=== PATIENT | male | born 1960 | race Caucasian/White ===

== ENCOUNTER 2019-04-28 06:12 | Observation (INO) ==
--- NOTE | 2019-04-12 12:10 | PAT Medication Instructions ---
Medication Instructions Date of Service April 12, 2019 Home Medications gabapentin 200 mg PO TID lisinopril 5 mg PO QAM DO NOT take the morning of surgery lisinopril 5 mg PO QAM Take morning of surgery With a small sip of water, OTHERWISE NOTHING TO EAT OR DRINK AFTER MIDNIGHT: gabapentin 200 mg PO TID Take evening before surgery gabapentin 200 mg PO TID Other Notes If you have any questions please call us at [phone] or [phone] or [phone] or [phone]
--- NOTE | 2019-04-13 10:49 | Anesthesiology Consultation ---
Date of Service April 13, 2019 Assessment & Plan (1) Encounter for pre-operative examination: Awaiting review preop testing (labs, EKG, CXR). Chart Review Chart Review: Patient seen in Pre Admission Testing Teaching & Discussion Pre-Anesthesia Teaching/Discussion Notes: Instructed NPO after midnight before surgery,except medications with 15 cc of water. Medication instructions provided according to the PAT guidelines. History Surgery Operation Date: 04/28/19 11:25 Proposed Procedures p C4-C6 Anterior Cervical Discectomy Fusion with Spinal Cord Monitoring - Jeremy Jules DO Height/Weight Height: 5 ft 8 in Weight: 92.8 kg Allergies Allergy/AdvReac Type Severity Reaction Status Date / Time No Known Allergies Allergy Verified 04/04/19 11:20 Medications Home Medications Medication Instructions Recorded Confirmed Last Taken gabapentin 200 mg PO TID 04/04/19 04/04/19 Unknown lisinopril 5 mg PO QAM 04/04/19 04/04/19 Unknown Past Medical History Medical History Bulging of cervical intervertebral disc Chronic neck pain Hypertension Obesity Exercise / Class Metabolic Activity II 4-5 Yardwork/Stairs/Walk up hill Past Family History Family History Grandmother (Paternal) FHx: lung cancer smoker Other No family history of adverse response to anesthesia Past Surgical History Surgical History H/O wisdom tooth extraction History of carpal tunnel release right History of colonoscopy S/P epidural steroid injection cervical Past Anesthesia History No Hx of Anesthesia Complications and No Family Hx of Anesthesia Complications History of PONV No Hx of PONV and Hx of Motion Sickness (occasional) STOP BANG Total 5 Social History Smoking Status: Never smoker Do You Dip or Chew Tobacco: No Hx Alcohol Use: Yes Alcohol type: beer alcohol intake frequency: holidays/special occasions only Hx Substance Use: No substance use type: does not use Review of Systems Occasional palpitations. Patient denies chest pain, shortness of breath, dyspnea on exertion, joint pain, reflux, cough, wheezing. Physical Exam Vital Signs VITALS BP 153/90 P 86 TEMP 98.5 SP02 98%RA RESP 18 PHYSICAL Full neck and c-spine range of motion. Full TMJ range of motion. TMD 3 finger breaths Mallampati Score 1 Dentition: intact Lungs: clear throughout to auscultation Cardiac: regular rate and rhythm, no murmurs noted Spine: normal Carotid arteries: negative bruit Extremities: no edema Testing Stress Test Date: 09/02/15 Type: exercise Exercise ECHO without LV wall motion abnormalities or inducible ischemia. Borderline EKG changes. 102% MPHR. 7.7 METS. No significant arrhythmias noted. LVEF 65%. Mild MR.
--- NOTE | 2019-04-13 11:24 | XRay Report ---
XR chest Pre-admission PA/Lat CLINICAL HISTORY: 58 years-old Male presenting with preoperative assessment, asymptomatic. TECHNIQUE: PA and lateral views of the chest were obtained. COMPARISON: None. FINDINGS: Cardiomediastinal silhouette normal. Lungs and pleural spaces clear. Osseous structures normal. Upper abdomen normal. IMPRESSION: 1. No acute cardiopulmonary disease. Electronically signed by: Bereket Roca M.D. 04/13/2019 11:22 AM
[2019-04-13 11:51] LABS: Appearance Urine Clear (Clear); Bilirubin Urine Negative (Negative); Blood Urine Negative (Negative); Color Urine Yellow; Glucose Urine UA Negative (Negative); Ketones Urine Negative (Negative); Leukocyte Esterase Urine Negative (Negative); Nitrite Urine Negative (Negative); Protein Urine Negative (Negative); Urobilinogen Urine Negative (Negative)
[2019-04-13 11:53] LABS: Basophils # (auto) 0.03 K/uL (0-0.2); Basophils % (auto) 0.3 %; Eosinophils # (auto) 0.27 K/uL (0-0.5); Hematocrit (blood only) 45.9 % (42-52); Immature Granulocytes # (auto) 0.04 K/uL (0.00-0.02); Immature Granulocytes % (auto) 0.5 %; Lymphocytes # (auto) 2.35 K/uL (1.2-3.4); Lymphocytes % (auto) 26.5 %; Mean Corpuscular Hemoglobin 30.2 pg (25-34); Mean Corpuscular Hgb Conc 34.9 g/dL (32-36); Mean Corpuscular Volume 86.6 fL (80-100); Mean Platelet Volume 9.8 fL (7.4-10.4); Monocytes # (auto) 1.03 K/uL (0.11-0.59); Monocytes % (auto) 11.6 %; Neutrophils # (auto) 5.15 K/uL (1.4-6.5); Neutrophils % (auto) 58.1 %; Platelet Count 230 K/uL (130-400); RDW Coefficient of Variation 13.2 % (11.5-14.5); RDW Standard Deviation 41.6 fL (36.4-46.3); White Blood Count 8.87 K/uL (4.8-10.8)
[2019-04-13 12:07] LABS: Partial Thromboplastin Ratio 0.9; Partial Thromboplastin Time 25.4 Seconds (21.0-31.0); Prothrombin Time 10.1 Seconds (9.0-12.0)
[2019-04-13 13:17] LABS: BUN Creatinine Ratio 12.2 (10-20); Calcium 9.1 mg/dl (8.5-10.1); Creatinine Clr Calc Pharmacy 78.3 ml/min; Est GFR (African American) 81.4; Est GFR (Non-African American) 70.3; Potassium 4.3 mmol/L (3.5-5.1)
[~2019-04-28 06:12] MED LIST: ACETAMINOPHEN 500 MG TAB PO SCH; CEFAZOLIN 2000MG 2,000 MG/15 ML SYR IV SCH; CeleBREX 200 MG CAP PO SCH; GABAPENTIN 600 MG DOSE PO SCH; LR 15ML/HR IV SCH
[2019-04-28] MEDS ORDERED: PROPOFOL IV EMULSION 10 MG/ML 100 ML VIAL IV ONE ×2 (06:44→10:19)
[2019-04-28] MEDS ORDERED: BACITRACIN INJ 50,000 UNIT VIAL ONE (06:59)
[2019-04-28] MEDS ORDERED: PHENYLEPHRINE 100MCG/ML 5ML SYR IV PRN (07:06)
[2019-04-28] MEDS ORDERED: HYDROmorphone INJ 1 MG/ML SYRINGE IV PRN ×2 (07:06→11:48)
[2019-04-28] MEDS ORDERED: ePHEDrine sulfate 50 MG/ML AMP IV PRN (07:06)
[2019-04-28] MEDS ORDERED: MEPERIDINE HCL 25 MG/ML CARP IV PRN (07:06)
[2019-04-28] MEDS ORDERED: LABETALOL HCL IV 5 MG/ML 20ML IV PRN (07:06)
[2019-04-28] MEDS ORDERED: ONDANSETRON INJ 2 MG/ML 2 ML VIAL IV PRN (07:06)
[2019-04-28] MEDS ORDERED: ATROPINE SULFATE 0.1 MG/ML 10ML SYR IV PRN (07:06)
[2019-04-28] MEDS ORDERED: fentaNYL citrate 100 MCG/2 ML VIAL IV PRN (07:06)
[2019-04-28] MEDS ORDERED: fentaNYL citrate 100 MCG/2 ML VIAL ONE ×4 (07:11→08:44)
[2019-04-28] MEDS ORDERED: MIDAZOLAM HCL 1 MG/ML 2ML VIAL ONE (07:11)
[2019-04-28] MEDS ORDERED: HYDROmorphone INJ 2 MG/ML SYR/VIAL ONE ×2 (07:11→08:25)
--- NOTE | 2019-04-28 07:26 | History & Physical Bridge Note ---
Date of Service April 28, 2019 History & Physical Bridge Note I have examined the patient, reviewed the History & Physical and in the interval since the performance of the History & Physical I have noted the following changes of clinical significance: no changes noted
--- NOTE | 2019-04-28 07:30 | History & Physical Report ---
Date of Service April 28, 2019 Assessment & Plan (1) Cervical stenosis of spinal canal: C4-C6 anterior cervical discectomy and fusion Present on Admission?: Yes History of Present Illness Chief Complaint: Neck and arm pain Primary Care Provider: Kendy Joyce MD This is a 58-year-old male presents with constant neck and arm pain. Failing since her course of nonoperative care is here for surgical invention. Allergies Allergy/AdvReac Type Severity Reaction Status Date / Time No Known Allergies Allergy Verified 04/28/19 06:36 Home Medications Home Medications Medication Instructions Recorded Confirmed Type gabapentin 200 mg PO TID 04/04/19 04/28/19 History lisinopril 5 mg PO QAM 04/04/19 04/28/19 History Past Med/Surg History Medical History Bulging of cervical intervertebral disc Chronic neck pain Hypertension Obesity Surgical History H/O wisdom tooth extraction History of carpal tunnel release right History of colonoscopy S/P epidural steroid injection cervical Family History Grandmother (Paternal) FHx: lung cancer smoker Other No family history of adverse response to anesthesia Social History Preferred Language: Belarusian Communication Ability: Effective Dialysis Social Worker Required: No Beliefs That Will Affect Care: None Current Living Situation: Spouse Other Information That Helps Us Care for You: No Feels Safe at Home: Yes Safety Concerns: Feels Safe At This Time Smoking Status: Never smoker Do You Dip or Chew Tobacco: No ; Second Hand Exposure: Yes (hx) ; Tobacco Cessation Education Requested by Patient: No Hx Alcohol Use: Yes Alcohol type: beer Hx Substance Use: No Physical Exam Physical Exam: Patient alert and oriented neurologically intact. Results & Data Vital Signs (Past 12 Hours) Vital Signs Temp Pulse Resp BP Pulse Ox 04/28/19 06:39 36.9 C 94 H 16 145/92 H 96
[2019-04-28] MEDS ORDERED: ONDANSETRON INJ 2 MG/ML 2 ML VIAL ONE (08:54)
[2019-04-28] MEDS ORDERED: SUCCINYLCHOLINE CHLORIDE 20 MG/ML 10 ML VIAL ONE (08:54)
[2019-04-28] MEDS ORDERED: GLYCOPYRROLATE 0.2 MG/ML VIAL ONE (08:54)
[2019-04-28] MEDS ORDERED: LIDOCAINE HCL 2% 2 ML VIAL/AMP(20MG/ML) INFIL ONE (08:54)
[2019-04-28] MEDS ORDERED: PHENYLEPHRINE HCL 10 MG/ML VIAL ONE (08:54)
[2019-04-28] MEDS ORDERED: LIDOCAINE 2% 20 MG/ML 5 ML SYR IV ONE (08:54)
[2019-04-28] MEDS ORDERED: ROCURONIUM BROMIDE 10 MG/ML 5 ML VIAL ONE (08:54)
[2019-04-28] MEDS ORDERED: PHENYLEPHRINE 100MCG/ML 5ML SYR ONE (08:54)
[2019-04-28] MEDS ORDERED: PROPOFOL IV EMULSION 10 MG/ML 20 ML VIAL IV ONE (08:54)
[2019-04-28] MEDS ORDERED: NEOSTIGMINE METHYLSULFATE 1 MG/ML 10ML VIAL ONE (08:54)
[2019-04-28] MEDS ORDERED: DEXAMETHASONE SOD INJ 4 MG/ML VIAL ONE (08:54)
[2019-04-28] MEDS ORDERED: FLOSEAL HEMOSTATIC MATRIX 10ML TOP ONE (09:23)
--- NOTE | 2019-04-28 09:34 | Operative Report ---
Post Operative Report Pre & Post Diagnosis Operation Date: 04/28/19 07:45 Pre-Op Diagnosis: Herniated was pulposis with radiculopathy and cervical spine Post-Op Diagnosis: Same I identified the patient and participated in the time-out.: Yes Procedure Operation Date: 04/28/19 07:45 Actual Procedures #1 anterior cervical discectomy with bilateral foraminotomies C4-5 C5-6. #2 anterior cervical arthrodesis C4-5 C5-6. #3 placement of Spira cage filled with DBM 7 mm in height at C4-5 and 8 mm in height at C5-6. #4 placement of 5 complete screws at C4-5 C5-6. Surgeon Jeremy Jules, DO Certified Nursing Assistant Instructor Jaime Madrid Estimated Blood Loss 25 Findings See Below The patient is 5 foot 8 inches tall weighing over 92 kg with a BMI of 31. The patient's body habitus did add significant technical difficulty with exposure and performing the procedure. This added at least 25% increase in operative time. Specimens None Indications This is a 58-year-old male who presents with above-mentioned diagnosis after failed extensive course of nonoperative care is here for surgical invention. Description of Procedure Patient was met with identified informed consent obtained. Patient was then taken to the operative suite underwent intubation placed in supine position the Vamshi table with head Huerta mill operator head. All bony prominences well-padded eyes inspected to ensure no external pressure placed upon. This point the anterior cervical spine was prepped and draped in normal sterile fashion. The assistance of fluoroscopy identified the C5 vertebral body and a transverse incision was placed along the right anterior aspect of the cervical spine overlying this region. Sharp dissection with the assistance of bipolar electrocautery was performed down to and exposing the anterior cervical spine from C4-C6. Self-retaining retractors placed. I verified my position with fluoroscopy. Then performed a complete discectomy of C4-5 out to the uncovertebral joints bilaterally. [place] distracting pins utilized to assist in visualization. Removed all posterior annular fibers longitudinal ligament bilateral foraminotomies performed addressing all stenosis. Endplates then burred to subcortical bleeding bone and a 7 mm Spira cage filled with DBM tapped in position. Then proceeded to c 5 6. Again complete discectomy performed out to the uncovertebral bilaterally. [place] distracting pins again utilized. Removed all posterior annular fibers longitudinal ligament and bilateral foraminotomies performed addressing all neural encroachment. Endplates were burred to subcortical bleeding bone and an 8 mm Spira cage filled with DBM tapped in position. All anterior osteophytes were then burred to a smooth cortical surface and a manning plate and screws applied with the assistance of fluoroscopy. The incision was then copiously irrigated explored to ensure no damage surrounding structures remaining bleeding. A 10 round YASIR drain inserted. Incision was then closed with 2-0 Vicryl in the fashion of 4 Monocryl for final skin closure. Steri-Strip sterile dressing placed. Patient will continue PACU stable disc. Please note Jaime Madrid was present at the entire procedure involved in patient positioning complex portions of the surgery and final skin closure. Lastly spinal cord monitoring was utilized that the procedure no changes noted. I attest to the content of the Intraoperative Record and any orders documented therein. Any exceptions are noted below.
--- NOTE | 2019-04-28 10:20 | Fluoroscopy Report ---
FL cervical 2-3V CLINICAL HISTORY: C4-C6 ANTERIOR DISCECTOMY FUSION COMPARISON STUDY: None FLUOROSCOPY TIME: 8 seconds. NUMBER OF FLUOROSCOPIC IMAGES: 2 FINDINGS: 2 intraoperative fluoroscopic spot images reveal postsurgical changes of anterior cervical discectomy and fusion at the C4-5 and C5-6 levels. IMPRESSION: Postsurgical changes of anterior cervical discectomy and fusion at the C4-C6 levels. ACT 112: Negative or not required by law. Electronically signed by: Bryant Matson M.D. 04/28/2019 10:19 AM
[2019-04-28] MEDS ORDERED: LARYING-O-JET KIT (LTA) ONE (10:58)
--- NOTE | 2019-04-28 11:01 | Anesthesiology Progress Note ---
Date of Service April 28, 2019 Anesthesia Post Procedure Vital Signs Vital Signs: Temp Pulse Pulse Resp BP Pulse Ox 04/28/19 10:55 93 H 14 138/90 95 04/28/19 10:45 84 12 147/85 H 95 04/28/19 10:35 79 12 141/89 H 96 04/28/19 10:25 87 10 L 139/89 98 04/28/19 10:15 88 10 L 153/86 H 94 04/28/19 10:06 36.0 C L 84 10 L 107/83 93 04/28/19 06:39 36.9 C 94 H 16 145/92 H 96 Transfer of Care Handoff Completed per policy Notes Mental Status: alert / awake / arousable Patient Amnestic to Procedure: Yes Nausea / Vomiting: adequately controlled Pain: adequately controlled Airway Patency, RR, SpO2: stable & adequate BP & HR: stable & adequate Hydration State: stable & adequate Anesthetic Complications: no major complications apparent and Pt Satisfied with anesthetic care Notes: The patient is awake and stable in PACU. There was some concern about an arrhythmia intraoperatively, but it was likely artifact. He has been in NSR in the PACU.
[2019-04-28] MEDS ORDERED: DO NOT ADMINISTER PNEUMOCOCCAL VACCINE PRN (11:48)
[2019-04-28] MEDS ORDERED: DEXAMETHASONE SOD PHOSPHATE 8 MG in SYRINGE 0 ML IV PRN (11:48)
[2019-04-28] MEDS ORDERED: FAMOTIDINE 20 MG TAB PO PRN (11:48)
[2019-04-28] MEDS ORDERED: RACEPINEPHRINE 2.25% NEBU SOLN 0.5 ML VIAL INH PRN (11:48)
[2019-04-28] MEDS ORDERED: HYDROmorphone INJ 0.5 MG/0.5 ML SYR IV PRN (11:48)
[2019-04-28] MEDS ORDERED: METOCLOPRAMIDE HCL INJ 5 MG/ML 2 ML VIAL IV PRN (11:48)
[2019-04-28] MEDS ORDERED: NALOXONE HCL 0.4 MG/1 ML VIAL/CARP IV PRN (11:48)
[2019-04-28] MEDS ORDERED: SOD PHOSPHATE/SOD BIPHOSPHATE ENEMA 132 ML BTL PR PRN (11:48)
[2019-04-28] MEDS ORDERED: MAGNESIUM HYDROXIDE SUSP 30 ML UDC PO PRN (11:48)
[2019-04-28] MEDS ORDERED: ONDANSETRON 4 MG OD TAB PO PRN (11:48)
[2019-04-28] MEDS ORDERED: ALUMINUM/MAGNESIUM SUSP 30 ML UDC PO PRN (11:48)
[2019-04-28] MEDS ORDERED: LORazepam 0.5 MG TAB PO PRN (11:48)
[2019-04-28] MEDS ORDERED: PROMETHAZINE HCL 12.5 MG in SODIUM CHLORIDE 0.9% 50 ML IV PRN (11:48)
[2019-04-28] MEDS ORDERED: DO NOT ADMINISTER FLU VACCINE PRN (11:48)
[2019-04-28] MEDS ORDERED: LORazepam 0.5 MG/1 ML VIAL IV PRN (11:48)
[2019-04-28] MEDS: LACTATED RINGER'S 1,000 ML IV SCH ×2 (12:19→22:53)
[2019-04-28] MEDS: GABAPENTIN 100 MG CAP PO SCH ×2 (13:22→20:07)
[2019-04-28] MEDS: lisinopriL 5 MG TAB PO SCH (13:57)
[2019-04-28] MEDS: TRAMADOL HCL 50 MG TABLET PO PRN (14:12)
[2019-04-28] MEDS ORDERED: ACETAMINOPHEN 500 MG TAB PO PRN (15:00)
[2019-04-28] MEDS ORDERED: ACETAMINOPHEN 1,000 MG/100 ML VIAL IV PRN (15:00)
[2019-04-28] MEDS: ONDANSETRON INJ 2 MG/ML 2 ML VIAL IV PRN (16:02)
[2019-04-28] MEDS ORDERED: COUGH DROP (SUGAR FREE) LOZ 24 LOZ/1 BOX BUCCAL ONE (16:38)
[2019-04-28] MEDS: CEFAZOLIN 2000MG 2,000 MG/15 ML SYR IV SCH (16:57)
--- NOTE | 2019-04-28 18:49 | History & Physical Report ---
Date of Service April 28, 2019 Assessment & Plan (1) Cervical stenosis of spinal canal: -This is a 58 year old male under orthopedic service who has pre-op diagnosis of Herniated was pulposis with radiculopathy and cervical spine and operated by orthopedic surgeon with anterior cervical discectomy on 04/28/19 (#1 anterior cervical discectomy with bilateral foraminotomies C4-5 C5-6. #2 anterior cervical arthrodesis C4-5 C5-6. #3 placement of Spira cage filled with DBM 7 mm in height at C4-5 and 8 mm in height at C5-6. #4 placement of 5 complete screws at C4-5 C5-6.) (2) Tachycardia: -Hospitalist assessed patient around 6:40 PM when consult was received. Patient sitting comfortably with heart rates in the 120s to 130s. Patient denies chest pain or palpitations. No tremors. Patient denies shortness of breath. He is breathing on room air. Patient did not appear to be in pain -EKG ordered TSH with reflex to T4 ordered; CBC ordered -tachycardia does not appear to be mediated by pain -patient already on IV fluids - continue -EKG shows sinus tachycardia of 120 bpm. while likely patient's tachycardia should resolve on it's own and likely is stress mediated from surgery, will give metoprolol 12.5 mg BID, will transfer to telemetry for closer monitoring of heart rates as telemetry units can give metoprolol IV prn if needed. will suggest for now metoprolol IV 5 mg q6 h prn if heart rate above 110 bpm Hypertension -blood pressure controlled -can continue home dose lisinopril DVT prophylaxis: on SCDs Patient will be followed by nocturnal hospital doctor Dr. Ruiz overnight I, Dr. Bin Harrington, will return as to hospitalist day time consultant rn starting at 7 AM on 04/29/19 and can make further recommendations then History of Present Illness This is a 58 year old male under orthopedic service who has pre-op diagnosis of Herniated was pulposis with radiculopathy and cervical spine and operated by orthopedic surgeon with anterior cervical discectomy on 04/28/19 (#1 anterior cervical discectomy with bilateral foraminotomies C4-5 C5-6. #2 anterior cervical arthrodesis C4-5 C5-6. #3 placement of Spira cage filled with DBM 7 mm in height at C4-5 and 8 mm in height at C5-6. #4 placement of 5 complete screws at C4-5 C5-6.) Hospitalist service was consulted because patient remained to be in tachycardia after operation allergy history: denies family history: denies Primary Care Provider: Kendy Joyce MD Allergies Allergy/AdvReac Type Severity Reaction Status Date / Time No Known Allergies Allergy Verified 04/28/19 06:36 Home Medications Home Medications Medication Instructions Recorded Confirmed Type gabapentin 200 mg PO TID 04/04/19 04/28/19 History lisinopril 5 mg PO QAM 04/04/19 04/28/19 History oxycodone 5 mg PO Q6H PRN #15 tab 04/28/19 Rx tramadol 50 mg PO Q6H PRN #15 tab 04/28/19 Rx Past Med/Surg History Medical History Bulging of cervical intervertebral disc Chronic neck pain Hypertension Obesity Surgical History H/O wisdom tooth extraction History of carpal tunnel release right History of colonoscopy S/P epidural steroid injection cervical Family History Grandmother (Paternal) FHx: lung cancer smoker Other No family history of adverse response to anesthesia Social History Preferred Language: Danish Communication Ability: Effective 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 Beliefs That Will Affect Care: None Current Living Situation: Spouse Other Information That Helps Us Care for You: No Feels Safe at Home: Yes Safety Concerns: Feels Safe At This Time Smoking Status: Never smoker Do You Dip or Chew Tobacco: No ; Second Hand Exposure: Yes (hx) ; Tobacco Cessation Education Requested by Patient: No Hx Alcohol Use: Yes Alcohol type: beer Hx Substance Use: No Review of Systems Review of Systems: All systems reviewed & are unremarkable except as noted in HPI & below Physical Exam Constitutional: comfortable Eyes: PERRL, conjunctivae normal, anicteric sclerae EOM intact bilaterally ENMT: external ear and nose normal, oropharynx normal Neck: neck drain anteriorly Respiratory: normal respiratory effort, lungs clear to auscultation Cardiovascular: Rate/Rhythm: regular rhythm Gastrointestinal (Abdomen): normal bowel sounds, soft, nontender, no hepatosplenomegaly Musculoskeletal: Head/Neck/Chest: normocephalic and head atraumatic Neurologic: PERRL, EOMI, accommodation nl, no face palsy, no dysarthria CN's II-XI intact bilaterally Psychiatric: A+Ox3, euthymic affect Results & Data Vital Signs (Past 12 Hours) Vital Signs Temp Pulse Pulse Pulse Resp BP Pulse Ox 04/28/19 16:44 36.6 C 120 H 18 131/78 95 04/28/19 16:39 36.8 C 115 H 115 H 18 144/82 H 94 04/28/19 15:57 36.5 C 117 H 19 159/96 H 95 04/28/19 15:55 04/28/19 15:38 102 H 16 96 04/28/19 14:35 111 H 16 137/89 97 04/28/19 13:30 106 H 18 153/93 H 96 04/28/19 12:30 36.5 C 97 H 16 96 04/28/19 12:10 102 H 14 96 04/28/19 12:05 102 H 16 153/92 H 94 04/28/19 11:30 36.8 C 99 H 14 142/86 H 96 04/28/19 11:15 86 12 126/89 95 04/28/19 11:05 36.3 C L 87 12 132/90 96 04/28/19 10:55 93 H 14 138/90 95 04/28/19 10:45 84 12 147/85 H 95 04/28/19 10:35 79 12 141/89 H 96 04/28/19 10:25 87 10 L 139/89 98 04/28/19 10:15 88 10 L 153/86 H 94 04/28/19 10:06 36.0 C L 84 10 L 107/83 93 Pulse Ox 04/28/19 16:44 04/28/19 16:39 04/28/19 15:57 04/28/19 15:55 95 04/28/19 15:38 04/28/19 14:35 04/28/19 13:30 04/28/19 12:30 04/28/19 12:10 04/28/19 12:05 94 04/28/19 11:30 04/28/19 11:15 04/28/19 11:05 04/28/19 10:55 04/28/19 10:45 04/28/19 10:35 04/28/19 10:25 04/28/19 10:15 04/28/19 10:06 Code Status & VTE Plan VTE Prophylaxis Plan VTE Prophylaxis will be ordered: Yes
[2019-04-28] MEDS ORDERED: METOPROLOL TARTRATE 25 MG TAB PO STA (19:09)
[2019-04-28 19:22] LABS: Eosinophils # (auto) 0.01 K/uL (0-0.5); Eosinophils % (auto) 0.1 %; Hematocrit (blood only) 42.7 % (42-52); Hemoglobin 15.1 g/dL (14.0-18.0); Immature Granulocytes # (auto) 0.04 K/uL (0.00-0.02); Immature Granulocytes % (auto) 0.3 %; Lymphocytes # (auto) 1.07 K/uL (1.2-3.4); Lymphocytes % (auto) 8.5 %; Mean Corpuscular Hemoglobin 30.2 pg (25-34); Mean Corpuscular Volume 85.4 fL (80-100); Mean Platelet Volume 9.7 fL (7.4-10.4); Monocytes # (auto) 0.41 K/uL (0.11-0.59); Monocytes % (auto) 3.3 %; Neutrophils # (auto) 11.02 K/uL (1.4-6.5); Neutrophils % (auto) 87.8 %; Platelet Count 230 K/uL (130-400); RDW Coefficient of Variation 13.1 % (11.5-14.5); RDW Standard Deviation 40.4 fL (36.4-46.3); White Blood Count 12.55 K/uL (4.8-10.8)
[2019-04-28 19:32] LABS: Mean Corpuscular Hgb Conc 35.4 g/dL (32-36)
[2019-04-28] MEDS: DOCUSATE SODIUM/SENNA 50/8.6MG TAB PO SCH (20:07)
[2019-04-28] MEDS ORDERED: METOPROLOL TARTRATE 1 MG/ML VIAL IV PRN (21:04)
[2019-04-29] MEDS: CEFAZOLIN 2000MG 2,000 MG/15 ML SYR IV SCH (00:22)
[2019-04-29] MEDS: ONDANSETRON INJ 2 MG/ML 2 ML VIAL IV PRN ×3 (00:24→21:31)
[2019-04-29] MEDS: TRAMADOL HCL 50 MG TABLET PO PRN ×2 (00:29→06:16)
[2019-04-29] MEDS: OXYCODONE HCL IR 5 MG TAB (IMMEDIATE RELEASE) PO PRN ×2 (08:05→21:40)
[2019-04-29] MEDS: lisinopriL 5 MG TAB PO SCH (08:07)
[2019-04-29] MEDS: GABAPENTIN 100 MG CAP PO SCH ×3 (08:07→20:08)
[2019-04-29] MEDS: POLYETHYLENE (MIRALAX) 17 GM PACK PO SCH ×3 (08:07→21:32)
[2019-04-29] MEDS ORDERED: METOPROLOL TARTRATE 25 MG TAB PO STA (08:26)
--- NOTE | 2019-04-29 08:33 | Hospitalist Progress Note ---
Date of Service April 29, 2019 Assessment & Plan (1) Cervical stenosis of spinal canal: post-operative state -This is a 58 year old male under orthopedic service who has pre-op diagnosis of Herniated was pulposis with radiculopathy and cervical spine and operated by orthopedic surgeon with anterior cervical discectomy on 04/28/19 (#1 anterior cervical discectomy with bilateral foraminotomies C4-5 C5-6. #2 anterior cervical arthrodesis C4-5 C5-6. #3 placement of Spira cage filled with DBM 7 mm in height at C4-5 and 8 mm in height at C5-6. #4 placement of 5 complete screws at C4-5 C5-6.) -orthopedics to discuss with patient about further instructions after neck surgery (2) Tachycardia: -Hospitalist assessed patient around 6:40 PM when consult was received. Patient sitting comfortably with heart rates in the 120s to 130s. Patient denies chest pain or palpitations. No tremors. Patient denies shortness of breath. He is breathing on room air. Patient did not appear to be in pain. EKG shows sinus tachycardia of 120 bpm. patient then given metoprolol tartrate 12.5 mg oral x 1 and transferred to telemetry for further monitoring and in case prn metoprolol IV needed to be given. Patient's vital signs and telemetry monitoring heart ra maite trending down to 95 bpms. No arrhythmia detected. -In the morning on 04/29/19 when eating breakfast, the heart rate and rhythm of sinus tachycardia around 110 bpm. Patient will be given another dose of 12.5 mg metoprolol tartrate oral medication. -Patient is advised to remain on telemetry monitoring until heart rates more consistently under 100 bpm, also on pain medications -TSH have been checked and is normal, Hemoglobin is stable Hypertension -blood pressure controlled -can continue home dose lisinopril DVT prophylaxis: on SCDs Subjective Patient's vital signs and telemetry monitoring heart rates trending down to 95 bpms. No arrhythmia detected. -In the morning on 04/29/19 when eating breakfast, the heart rate and rhythm of sinus tachycardia around 110 bpm. Patient will be given another dose of 12.5 mg metoprolol tartrate oral medication. -Patient is advised to remain on telemetry monitoring until heart rates more consistently under 100 bpm patient reports poor sleep. no chest pain. no shortness of breath. no palpitations. no abdominal pain. no nausea. no vomiting. patient tolerating the liquid diet Review of Systems Review of Systems: All systems reviewed & are unremarkable except as noted in HPI & below Physical Exam Constitutional: comfortable Eyes: PERRL, conjunctivae normal, anicteric sclerae EOM intact bilaterally ENMT: external ear and nose normal, oropharynx normal Neck: plastic drain tube from the anterior neck Respiratory: normal respiratory effort, lungs clear to auscultation Cardiovascular: Rate/Rhythm: regular rhythm Gastrointestinal (Abdomen): normal bowel sounds, soft, nontender, no hepatosplenomegaly Musculoskeletal: Head/Neck/Chest: normocephalic and head atraumatic Neurologic: PERRL, EOMI, accommodation nl, no face palsy, no dysarthria CN's II-XI intact bilaterally Psychiatric: A+Ox3, euthymic affect Results & Data Vital Signs (Past 12 Hours) Vital Signs Temp Pulse Resp BP BP Pulse Ox 04/29/19 07:53 36.9 C 95 H 19 157/87 H 96 04/29/19 04:03 94 H 04/29/19 03:50 36.7 C 97 H 16 130/81 96 04/29/19 03:29 107 H 14 98 04/29/19 02:54 86 04/29/19 00:54 36.7 C 99 H 18 144/83 H 97 04/29/19 00:39 103 H 04/28/19 23:20 109 H 18 97 04/28/19 22:59 36.6 C 106 H 19 134/86 95 04/28/19 21:27 100 H 04/28/19 20:36 36.6 C 105 H 18 153/94 H 95
[2019-04-29] MEDS ORDERED: METOPROLOL TARTRATE 25 MG TAB PO SCH (09:00)
[2019-04-29] MEDS: LACTATED RINGER'S 1,000 ML IV SCH ×2 (09:28→19:15)
--- NOTE | 2019-04-29 10:25 | Orthopedic Progress Note ---
Date of Service April 29, 2019 Assessment & Plan (1) Cervical stenosis of spinal canal: At this time we will maintain his YASIR drain another 24 hours monitor his heart rate determine if he should go home with a beta-mike or not. He may remove his collar when eating and sitting in a chair but should wear it when ambulating. Hopefully discharge home tomorrow. Present on Admission?: Yes Subjective Patient's right arm symptoms are markedly improved. He is tolerating a soft diet. He has no complaints of chest pain or other discomforts. Physical Exam Physical Exam: Patient is in a chair at the bedside. His collar is in dressings in place. Is excellent strength testing. Results & Data Vital Signs (Past 12 Hours) Vital Signs Temp Pulse Resp BP BP Pulse Ox 04/29/19 10:00 36.6 C 102 H 19 154/88 H 93 04/29/19 07:53 36.9 C 95 H 19 157/87 H 96 04/29/19 04:03 94 H 04/29/19 03:50 36.7 C 97 H 16 130/81 96 04/29/19 03:29 107 H 14 98 04/29/19 02:54 86 04/29/19 00:54 36.7 C 99 H 18 144/83 H 97 04/29/19 00:39 103 H 04/28/19 23:20 109 H 18 97 04/28/19 22:59 36.6 C 106 H 19 134/86 95
[2019-04-29] MEDS: DEXAMETHASONE SOD PHOSPHATE 10 MG in SYRINGE 0 ML IV SCH ×2 (13:55→21:32)
--- NOTE | 2019-04-29 19:09 | Anesthesiology Progress Note ---
Date of Service April 29, 2019 Anesthesia Post Procedure Vital Signs Vital Signs: Temp Pulse Resp BP BP Pulse Ox 04/29/19 18:50 37.3 C 105 H 18 146/87 H 91 04/29/19 15:38 87 14 97 04/29/19 15:06 37.2 C 83 18 143/88 H 91 04/29/19 11:54 36.5 C 81 19 157/93 H 95 04/29/19 11:25 92 H 14 96 04/29/19 10:00 36.6 C 102 H 19 154/88 H 93 04/29/19 08:00 90 14 97 04/29/19 07:53 36.9 C 95 H 19 157/87 H 96 04/29/19 04:03 94 H 04/29/19 03:50 36.7 C 97 H 16 130/81 96 04/29/19 03:29 107 H 14 98 04/29/19 02:54 86 04/29/19 00:54 36.7 C 99 H 18 144/83 H 97 04/29/19 00:39 103 H 04/28/19 23:20 109 H 18 97 04/28/19 22:59 36.6 C 106 H 19 134/86 95 04/28/19 21:27 100 H 04/28/19 20:36 36.6 C 105 H 18 153/94 H 95 04/28/19 20:05 36.8 C 124 H 18 148/92 H 94 04/28/19 20:00 125 H 16 95 Pain Intensity Posterior Neck: Pain Intensity: 5 Notes Mental Status: see notes below (Pt sleeping comfortably) Patient Amnestic to Procedure: Yes Nausea / Vomiting: adequately controlled Pain: adequately controlled Airway Patency, RR, SpO2: stable & adequate BP & HR: stable & adequate Hydration State: stable & adequate Anesthetic Complications: no major complications apparent
[2019-04-29] MEDS: DOCUSATE SODIUM/SENNA 50/8.6MG TAB PO SCH (20:08)
[2019-04-30] MEDS: POLYETHYLENE (MIRALAX) 17 GM PACK PO SCH ×2 (03:20→08:31)
[2019-04-30] MEDS: LACTATED RINGER'S 1,000 ML IV SCH (03:20)
--- NOTE | 2019-04-30 07:31 | Hospitalist Progress Note ---
Date of Service April 30, 2019 Assessment & Plan (1) Cervical stenosis of spinal canal: post-operative state -This is a 58 year old male under orthopedic service who has pre-op diagnosis of Herniated was pulposis with radiculopathy and cervical spine and operated by orthopedic surgeon with anterior cervical discectomy on 04/28/19 (#1 anterior cervical discectomy with bilateral foraminotomies C4-5 C5-6. #2 anterior cervical arthrodesis C4-5 C5-6. #3 placement of Spira cage filled with DBM 7 mm in height at C4-5 and 8 mm in height at C5-6. #4 placement of 5 complete screws at C4-5 C5-6.) -orthopedics to discuss with patient about further instructions after neck surgery -patient did express concern with feeling some trouble with swallowing liquids on 04/29/19, was given steroids by orthopedic service, and subsequently feeling better. denies any swallowing problems with meals since. hospitalist did request for speech and swallow assessment however patient is feeling he is doing well. at discretion of orthopedics when to discharge patient. (2) Tachycardia: -Hospitalist assessed patient around 6:40 PM when consult was received. Patient sitting comfortably with heart rates in the 120s to 130s. Patient denies chest pain or palpitations. No tremors. Patient denies shortness of breath. He is breathing on room air. Patient did not appear to be in pain. EKG shows sinus tachycardia of 120 bpm. patient then given metoprolol tartrate 12.5 mg oral x 1 and transferred to telemetry for further monitoring and in case prn metoprolol IV needed to be given. Patient's vital signs and telemetry monitoring heart rates trending down to 95 bpms. No arrhythmia detected. -TSH have been checked and is normal, Hemoglobin is stable -In the morning on 04/29/19 when eating breakfast, the heart rate and rhythm of sinus tachycardia around 110 bpm. Patient given another dose of 12.5 mg metoprolol tartrate oral medication and further telemetry monitoring -As of AM of 04/30/19, telemetry showing sinus rhythm of high 90 bpm. At this time, there does not appear to be any need for metoprolol. No further telemetry is felt to be needed at this timePatient may be discharged from orthopedic service without metoprolol; hospitalist had called for primary care doctor appointment 05/05/2019 11:20 AM Provider Kendy Joyce MD [facility]. If patient is not discharge from orthopedic service on 04/30/19, then patient can be transferred back to a non-telemetry monitoring [facility]. If patient were to remain in the hospital as of 05/01/19, my hospitalist colleague Dr. Perez will follow the patient as hospitalist sap solution manager consultant Hypertension -continue home dose lisinopril DVT prophylaxis: on SCDs Subjective -patient did express concern with feeling some trouble with swallowing liquids on 04/29/19, was given steroids by orthopedic service, and subsequently feeling better. denies any swallowing problems with meals since. hospitalist did request for speech and swallow assessment however patient is feeling he is doing well. at discretion of orthopedics when to discharge patient. -As of AM of 04/30/19, telemetry showing sinus rhythm of high 90 bpm. At this time, there does not appear to be any need for metoprolol. No further telemetry is felt to be needed at this timePatient may be discharged from orthopedic service without metoprolol; hospitalist had called for primary care doctor appointment 05/05/2019 11:20 AM Provider Kendy Joyce MD [facility]. If patient is not discharge from orthopedic service on 04/30/19, then patient can be transferred back to a non-telemetry monitoring [facility]. If patient were to remain in the hospital as of 05/01/19, my hospitalist colleague Dr. Perez will follow the patient as hospitalist sap solution manager consultant patient reports he has been ambulatory, denies chest pain. denies palpitations, breathing on room air, no shortness of breath, no dizziness. no lightheadedness Review of Systems Review of Systems: All systems reviewed & are unremarkable except as noted in HPI & below Physical Exam Constitutional: comfortable Eyes: PERRL, conjunctivae normal, anicteric sclerae EOM intact bilaterally ENMT: external ear and nose normal, oropharynx normal Respiratory: normal respiratory effort, lungs clear to auscultation Cardiovascular: Rate/Rhythm: regular rhythm Gastrointestinal (Abdomen): normal bowel sounds, soft, nontender, no hepatosplenomegaly Musculoskeletal: Head/Neck/Chest: normocephalic and head atraumatic Neurologic: PERRL, EOMI, accommodation nl, no face palsy, no dysarthria CN's II-XI intact bilaterally Psychiatric: A+Ox3, euthymic affect Results & Data Vital Signs (Past 12 Hours) Vital Signs Temp Pulse Resp BP Pulse Ox 04/30/19 07:09 36.4 C L 86 18 153/92 H 93 04/30/19 03:32 36.3 C L 81 18 149/78 H 92 04/30/19 03:10 91 H 16 92 04/30/19 02:08 84 04/30/19 00:07 36.7 C 81 18 149/84 H 93 04/29/19 23:23 88 16 95 04/29/19 21:51 82 04/29/19 19:51 94 H 16 95 04/29/19 19:35 94 H
[2019-04-30] MEDS: GABAPENTIN 100 MG CAP PO SCH (08:30)
[2019-04-30] MEDS: lisinopriL 5 MG TAB PO SCH (08:31)
[2019-04-30] MEDS ORDERED: bisacodyL 10 MG SUPP PR PRN (09:35)
--- NOTE | 2019-04-30 09:59 | Discharge Summary ---
Date of Service April 30, 2019 Admission HPI Per Admitting Provider This is a 58-year-old male presents with constant neck and arm pain. Failing since her course of nonoperative care is here for surgical invention. Principal Diagnosis Cervical spinal stenosis with radiculopathy Discharge Data Allergies Allergy/AdvReac Type Severity Reaction Status Date / Time No Known Allergies Allergy Verified 04/28/19 06:36 Consultations 04/28/19 18:34 Consult Hospitalist Routine Procedures Performed Operation Date: 04/28/19 07:45 Actual Procedures p C4-C6 Anterior Cervical Discectomy Fusion with Spinal Cord Monitoring(Not Applicable) - Jeremy Jules DO Ordered Studies 04/28/19 07:00 FL cervical 2-3V Routine FL fluoroscopy <1hr Routine Hospital Course (1) Cervical stenosis of spinal canal: Patient underwent anterior cervical discectomy and fusion tolerated so was taken to orthopedic for postoperative. Postop day #1 his arm symptoms are markedly improved. He has been some difficulty swallowing. He still quite tachycardic and we elected to keep him 1 more day. Postop day #2 heart rate was uncontrolled swallowing markedly improved. YASIR drain decreased appropriately. Subsequently discharged home. Neurologically intact. Discharge instructions from the chart for further review. Total Time Total Time Spent Total Time Spent (In Minutes): 20 minutes Discharge Plan Discharge Items Patient Disposition: Home - Self-Care Reason For Visit: Spinal Stenosis, Cervical Region Discharge Diagnosis: cervical stenosis Activity: Per Instructions section Non-emergency contact: Primary Care Provider Call non-emergency contact if: you have any medication questions Follow-up/Referrals: Kendy Joyce MD [Primary Care Provider] - Diet: Regular Addtl Attending Provider Instructions: ACTIVITY RECOMMENDATIONS: SELF CARE INSTRUCTIONS AFTER CERVICAL FUSIONS 1. No smoking. Smoking drastically decreases the chance of a solid fusion. 2. No bending, lifting more than 5 pounds, or twisting (roll like a log when turning in bed). 3. You may shower 3 days after surgery. Thoroughly dry wound. Do not soak in the tub. 4. Cervical collar: Must be worn at all times including sleeping. You may remove the brace only to bath, eat and if you are sitting in a recliner. 5. Please walk as much as you can for exercise. Gradually increase the distance that you walk as your endurance increases. SPECIAL CARE INSTRUCTIONS: VERY IMPORTANT TO READ AND REVIEW A. Do not take any anti-inflammatory medications (i.e. Indocin, Advil, Aspirin, Naprosyn, Aleve, Motrin, etc.) as these may inhibit the chance of a solid fusion. Tylenol is okay to take. B. Your surgical incision has been closed with a cosmetic suture under the skin that will dissolve in about 6 weeks. In 14 days, you can use a pair of clean scissors and cut the suture that is left outside of the skin at the ends of your incision. C. Complications are uncommon, but please contact us if you have any signs or symptoms of: 1. wound infection (fever higher than 102.5 degrees F, redness, separation of wound, drainage, or increasing pain from the incision) 2. blood clots in legs (pain, swelling, redness and warmth in legs) 3. urinary tract infection (fever higher than 102.5 degrees, burning upon urination or increased frequency of urination) 4. nerve problems (inability to walk on your toes or heels, numbness, loss of bowel or bladder control) 5. any other symptoms that concern you. D. Please call the office at if you have any concerns or questions about your operation or recovery. MANAGING PAIN AFTER SPINAL SURGERY 1. Narcotic medication is intended for short-term use and will be provided for surgical pain. Surgical pain usually lasts for a period of 4-6 weeks. Narcotic medication includes Percocet, Vicodin, Darvocet, Tylenol #3 or Lortab. 2. Longer-term pain is more appropriately treated with non-narcotic medication such as Tylenol ES. 3. Muscle spasm is not appropriately treated with narcotics. Muscle relaxers such as Soma, Flexeril or Skelaxin can be used along with Tylenol ES. 4. Remember that we all live with some "aches and pains". This is not unusual or uncommon after an injury or as we get older. 5. We will provide appropriate medication within the normal guidelines of their prescribed use. We will also be very cautious and aware of potential abuse and extended duration of patients' medication needs. 6. Please allow 2-3 days to process refills. Prescriptions will not be mailed but must be picked up at the office. FOLLOW UP VISIT: Keep your scheduled follow-up appointment. Any questions, please call the office at . Addtl Java Scala Developer Provider Instructions: primary care doctor appointment 05/05/2019 11:20 AM Provider Kendy Joyce MD [facility] Pending Studies at Discharge: No Stand-Alone Forms: My [facility] Zelnas, Smoking Cessation Medications and DC Order Prescriptions: New tramadol 50 mg tablet 50 mg PO Q6H PRN (Reason: pain, moderate) Qty: 15 RF: 0 oxycodone 5 mg tablet 5 mg PO Q6H PRN (Reason: pain, severe) Qty: 15 RF: 0 Continued lisinopril 5 mg Tablet 5 mg PO QAM RF: 0 gabapentin 100 mg Capsule 200 mg PO TID RF: 0 Discharge Orders: Discharge Order (Routine); Ordered 04/30/19 Ordered By: Jeremy Jules Admission Data Admit Date/Time: 04/28/19 10:50 Attending Provider: Jeremy Jules Admit Provider: Jeremy Jules Primary Care Provider: Kendy Joyce Other Providers: Bin Harrington ; Elier Bailey
[2019-04-30] MEDS: OXYCODONE HCL IR 5 MG TAB (IMMEDIATE RELEASE) PO PRN (11:04)
== END 2019-04-30 12:03 | disposition home or self-care (01) ==
LOC: ASU 06:12 → 3E 06:12 → 2S 20:40